=== PATIENT | male | born 1985 ===

== ENCOUNTER 2021-05-27 23:42 | Emergency (ER) | payer SELFPAY ==
--- NOTE | 2021-05-28 02:06 | ER ---
Nurse's Notes [facility] Name: Christ Shook Age: 35 yrs Sex: Male : 1985 Arrival Date: 05/27/2021 Time: 23:47 Bed External Waiting Private MD: Diagnosis: Presentation: 05/28 00:10 Chief complaint: Spouse and/or significant other states: Covid+ 05/20/2021/ S/S started ca1 05/18/2021. S/S getting worse, fatigue, cough and SOB, fever. Coronavirus screen: Client denies travel out of the [place] in the last 14 days. Client reports previous positive COVID test result. Date of collection: May 20, 2021 Staff notified of need for isolation. Ebola Screen: Patient negative for fever greater than or equal to 101.5 degrees Fahrenheit, and additional compatible Ebola Virus Disease symptoms Patient denies exposure to infectious person. Patient denies travel to an Ebola-affected area in the 21 days before illness onset. No symptoms or risks identified at this time. Initial Sepsis Screen: Does the patient meet any 2 criteria? No. Patient's initial sepsis screen is negative. Does the patient have a suspected source of infection? No. Patient's initial sepsis screen is negative. Risk Assessment: Do you want to hurt yourself or someone else? Patient reports no desire to harm self or others. Onset of symptoms was May 18, 2021. 00:10 Method Of Arrival: Ambulatory ca1 00:10 Acuity: CARMEN 3 ca1 Historical: - Allergies: 00:13 Erythromycin; ca1 - PMHx: 00:13 None; ca1 - Immunization history:: Client reports having NOT received the Covid vaccine. - Social history:: Smoking status: Patient denies any tobacco usage or history of. Vital Signs: 00:10 BP 127 / 79; Pulse 102; Resp 18 S; Temp 97.6(TE); Pulse Ox 96% on R/A; Height 5 ft. 11 ca1 in. (180.34 cm); ED Course: 05/27 23:47 Patient arrived in ED. bp1 05/28 00:13 Triage completed. ca1 00:13 Arm band placed on right wrist. ca1 Administered Medications: No medications were administered Outcome: 02:05 Patient left the ED. em Signatures: Fran Almonte, RN RN em Acob, Nicci, RN RN ca1 Audrey Putnam [facility] Corrections: (The following items were deleted from the chart) 00:14 00:13 Allergies: No Known Allergies; ca1 ca1 00:15 00:10 Chief complaint: Spouse and/or significant other states: Covid+ 05/20/2021/ S/S ca1 started 05/18/2021. S/S getting worse, fatigue, cough and SOB ca1
[2021-05-28 02:26] VITALS: BP 127/79; TEMP 97.6; O2SAT 96
== END 2021-05-28 02:05 | disposition left against medical advice (07) ==
LOC: ER 23:42
DX: Z53.21 Procedure and treatment not carried out due to patient leaving prior to being seen by health care provider (principal)
CPT/HCPCS: 99281